=== PATIENT | male | born 1940 | race Caucasian/White ===

== ENCOUNTER 2019-03-24 07:32 | Day surgery (SDC) | payer MEDICARE, OTHER ==
[2019-03-24] MEDS ORDERED: fentaNYL 100 MCG/2 ML SDV ONE (08:17)
[2019-03-24] MEDS ORDERED: Propofol 200 MG/20 ML SDV ONE ×2 (08:17→10:04)
[2019-03-24] MEDS ORDERED: Midazolam 1 MG/ML 2 ML SDV ONE (08:17)
[2019-03-24] MEDS ORDERED: Lactated Ringers 1,000 ML IV SCH (08:45)
--- NOTE | 2019-03-24 15:40 | OR ---
DATE OF PROCEDURE: 03/24/2019 PREOPERATIVE DIAGNOSES: History of Zapata's esophagus, colon cancer screening. POSTOPERATIVE DIAGNOSES: History of Zapata's esophagus, hiatal hernia, submucosal gastric mass, colonic diverticulosis, pedunculated polyp 15 cm from the anal verge. PROCEDURE: Esophagogastroduodenoscopy with biopsy of gastroesophageal junction and biopsy of gastric submucosal mass, colonoscopy to the cecum with biopsy and then snare cautery polypectomy of polyp 15 cm from the anal verge. SURGEON: Nicko Colvin MD ANESTHESIA: IV anesthesia with monitored anesthesia care. INDICATION: This 78-year-old white male is referred for upper and lower endoscopy. Indication for the upper endoscopy is a history of Zapata's esophagus. Indication for the colonoscopy is colon cancer screening. He says he has not had either one of these studies for 10 years. I counseled him for upper and lower endoscopy with possible biopsy and/or polypectomy, including risks and alternatives, and he gave his informed consent to proceed. PROCEDURE IN DETAIL: The patient was placed in the left lateral decubitus position. IV anesthesia was administered by the Anesthesia Service. Time-out was held. The flexible video Olympus upper endoscope was passed through his mouth, down his esophagus, and into his stomach. The scope was easily passed through the pylorus into the duodenum reaching its third portion. The scope was then slowly withdrawn examining the mucosa throughout. The duodenal mucosa appeared unremarkable. The scope was brought up through the pylorus. The antrum appeared unremarkable. The scope was brought back in the body of the stomach, and a submucosal mass was seen. The scope was retroflexed. A prominent hiatal hernia was noted. The scope was straightened. We biopsied the submucosal mass. To do this, we removed some of the overlying mucosa and biopsied the underlying tissue. The scope was then brought up through the hiatal hernia to the GE junction. This appeared fairly unremarkable, but because of his history of Zapata's esophagus, we obtained multiple totalling at least six biopsies of the gastroesophageal junction. The scope was then brought proximally up through remainder of the esophagus which otherwise appeared unremarkable and was removed. Next, a rectal exam was performed, which was unremarkable. The flexible video Olympus colonoscope was introduced through his anus, up his rectum, and out his colon all the way to the cecum. En route, we saw several left-sided diverticula. There was no bleeding or inflammation associated with them. Once the cecum was reached, the scope was slowly withdrawn examining the mucosa throughout. No additional mucosal abnormalities noted until we reached about 15 cm from the anal verge. Here we saw a pedunculated polyp. We initially biopsied it to ensure we had tissue and then passed a snare around its base. It was elevated up away from the bowel wall and amputated as electrocautery was applied. The polyp was aspirated through the scope and captured in a polyp trap. The scope was retroflexed in the rectum with the distal rectum appearing unremarkable. The scope was straightened and removed. He tolerated the procedure well. Nicko Colvin MD /[id number]
== END 2019-03-24 11:55 | disposition home or self-care (01) ==
LOC: JP.SDS 07:32
PROVIDERS: ATTEND Surgery
DX: Z12.11 Encounter for screening for malignant neoplasm of colon (principal); K22.70 Barrett's esophagus without dysplasia; D12.7 Benign neoplasm of rectosigmoid junction; K57.30 Diverticulosis of large intestine without perforation or abscess without bleeding; K21.9 Gastro-esophageal reflux disease without esophagitis; K44.9 Diaphragmatic hernia without obstruction or gangrene; Z88.1 Allergy status to other antibiotic agents
CPT/HCPCS: J2250; J2704; J3010; J7120

== ENCOUNTER 2019-04-12 08:12 | Day surgery (SDC) | payer MEDICARE, OTHER ==
[2019-04-12] MEDS ORDERED: Lactated Ringers 1,000 ML IV SCH (11:00)
[2019-04-12] MEDS ORDERED: Propofol 200 MG/20 ML SDV ONE ×2 (12:09→12:54)
--- NOTE | 2019-04-13 08:45 | OR ---
DATE OF PROCEDURE: 04/12/2019 PREOPERATIVE DIAGNOSIS: Gastric mass. POSTOPERATIVE DIAGNOSIS: Gastric mass. PROCEDURE: Esophagogastroduodenoscopy with biopsy and snare of gastric mass. SURGEON: Nicko Colvin MD ANESTHESIA: IV anesthesia with monitored anesthesia care. INDICATIONS: This 78-year-old white male underwent upper endoscopy about a month ago where we found a gastric mass. We attempted to biopsy this. This was submucosal, came back indeterminate. He is brought back to the operating room for a repeat upper endoscopy to see if we can get a diagnosis of this mass. The question is a gastrointestinal stromal tumor or a lipoma. I counseled him for this, including risks and alternatives, and he gave his informed consent to proceed. PROCEDURE IN DETAIL: The patient was placed in the left lateral decubitus position. IV anesthesia was administered by the Anesthesia Service. Time-out was held. The flexible video Olympus upper endoscope was passed through his mouth, down the esophagus, and into his stomach. The scope was passed to the mass. We initially removed some of the mucosa with the biopsy forceps and tried to get some of the deeper tissue in the mass for a diagnosis. We then placed a snare about it and removed some of the mass. We also then, after the mucosa clearly had been removed, obtained further biopsies to try and get tissue for diagnosis. The scope was then removed. He tolerated the procedure well. Nicko Colvin MD /[id number]
== END 2019-04-12 14:15 | disposition home or self-care (01) ==
LOC: JP.SDS 08:12
PROVIDERS: ATTEND Surgery
DX: K31.89 Other diseases of stomach and duodenum (principal); I25.10 Atherosclerotic heart disease of native coronary artery without angina pectoris; I25.2 Old myocardial infarction; I10 Essential (primary) hypertension; E78.5 Hyperlipidemia, unspecified; J45.909 Unspecified asthma, uncomplicated; K21.9 Gastro-esophageal reflux disease without esophagitis; E66.9 Obesity, unspecified; Z68.31 Body mass index [BMI] 31.0-31.9, adult; Z88.1 Allergy status to other antibiotic agents
CPT/HCPCS: 43251; J2704; J7120; 88305; 88341; 88342

== ENCOUNTER 2022-04-13 13:21 | Inpatient (IN) | payer MEDICARE, OTHER ==
[2022-04-13 15:39] LABS: CORONAVIRUS COVID-19 NAA POSITIVE (NEGATIVE)
[2022-04-13] MEDS ORDERED: Albuterol/Ipratropium 3.0-0.5 MG/3 ML Neb Soln INH PRN (19:19)
[2022-04-13] MEDS ORDERED: Meclizine 25 MG Tab PO PRN (19:19)
[2022-04-13] MEDS ORDERED: LORazepam 2 MG/ML SDV IVPUSH PRN (19:21)
[2022-04-13] MEDS ORDERED: Ondansetron 4 MG Tab.DIS PO PRN (19:21)
[2022-04-13] MEDS ORDERED: Magnesium Hydroxide 400 MG/5 ML Susp 30 ML Cup PO PRN (19:21)
[2022-04-13] MEDS ORDERED: Acetaminophen/HYDROcodone 325-5 MG Tab PO PRN (19:21)
[2022-04-13] MEDS ORDERED: Albuterol 0.083% 2.5 MG/3 ML Neb Soln NEB PRN (19:21)
[2022-04-13] MEDS: Dexamethasone 4 MG/ML SDV IVPUSH SCH (20:30)
[2022-04-13] MEDS: guaiFENesin 600 MG Tab.ER PO SCH (20:31)
[2022-04-13] MEDS ORDERED: REMDESIVIR 200 MG in Sodium Chloride 0.9% 250 ML IV ONE (22:00)
[2022-04-13] MEDS: Enoxaparin 40 MG/0.4 ML Syringe SUBCUT SCH (22:45)
[2022-04-14] MEDS: Acetaminophen 325 MG Tab PO PRN ×4 (02:51→20:13)
[2022-04-14 06:33] LABS: ESTIMATED GFR 49 (>60)
[2022-04-14] MEDS ORDERED: Sodium Chloride 0.9% 100 ML IV SCH (08:15)
[2022-04-14] MEDS ORDERED: Iopamidol 755 Mg/ML 100 ML Bottle IV SCH (08:15)
[2022-04-14] MEDS ORDERED: Non-Formulary Medication 1 Each (Esomeprazole [Nexium] 40 MG Cap) PO SCH (09:00)
[2022-04-14] MEDS: Rosuvastatin 10 MG Tab PO SCH (09:44)
[2022-04-14] MEDS: Lisinopril 20 MG Tab PO SCH (09:44)
[2022-04-14] MEDS: Pantoprazole 40 MG Tab.CR PO SCH (09:45)
[2022-04-14] MEDS: guaiFENesin 600 MG Tab.ER PO SCH ×2 (09:45→22:04)
[2022-04-14] MEDS: Allopurinol 100 MG Tab PO SCH (09:45)
[2022-04-14] MEDS: amLODIPine 5 MG Tab PO SCH (09:45)
[2022-04-14] MEDS: Fenofibrate 54 MG Tab PO SCH (09:46)
[2022-04-14] MEDS: Cholecalciferol (Vitamin D3) 25 MCG Tab PO SCH (09:46)
[2022-04-14] MEDS: Enoxaparin 40 MG/0.4 ML Syringe SUBCUT SCH (09:46)
[2022-04-14] MEDS: Enoxaparin 100 MG/1 ML Syringe SUBCUT SCH ×2 (12:52→23:43)
[2022-04-14] MEDS ORDERED: Acetaminophen 1,000 MG in Premix Bag 1 BAG IV ONE (14:00)
[2022-04-14] MEDS: Dexamethasone 4 MG/ML SDV IVPUSH SCH (20:12)
[2022-04-14] MEDS: REMDESIVIR 100 MG in Sodium Chloride 0.9% 100 ML IV SCH (22:04)
[2022-04-15] MEDS: Acetaminophen 325 MG Tab PO PRN ×3 (04:04→21:01)
[2022-04-15 06:48] LABS: ESTIMATED GFR 26 (>60)
[2022-04-15] MEDS: guaiFENesin 600 MG Tab.ER PO SCH ×2 (08:39→22:39)
[2022-04-15] MEDS: Rosuvastatin 10 MG Tab PO SCH (08:39)
[2022-04-15] MEDS: amLODIPine 5 MG Tab PO SCH (08:39)
[2022-04-15] MEDS: Pantoprazole 40 MG Tab.CR PO SCH (08:39)
[2022-04-15] MEDS: Fenofibrate 54 MG Tab PO SCH (08:39)
[2022-04-15] MEDS: Lisinopril 20 MG Tab PO SCH (08:40)
[2022-04-15] MEDS: Cholecalciferol (Vitamin D3) 25 MCG Tab PO SCH (08:40)
[2022-04-15] MEDS: Allopurinol 100 MG Tab PO SCH (08:40)
[2022-04-15] MEDS ORDERED: Azithromycin 500 MG in Sodium Chloride 0.9% 250 ML IV SCH (09:30)
[2022-04-15] MEDS: Heparin Sodium 5,000 Units/ML Vial SUBCUT SCH ×2 (10:13→22:39)
[2022-04-15] MEDS ORDERED: Sodium Chloride 0.9% 1,000 ML IV ONE (10:34)
[2022-04-15] MEDS ORDERED: Sodium Chloride 0.9% 500 ML IV ONE (11:33)
[2022-04-15] MEDS: Norepinephrine Bit/D5W Premix 4 MG in Premix Bag 1 BAG IV SCH ×2 (12:16→22:00)
[2022-04-15 21:35] LABS: ESTIMATED GFR 14 (>60)
[2022-04-15] MEDS: REMDESIVIR 100 MG in Sodium Chloride 0.9% 100 ML IV SCH (22:10)
[2022-04-15] MEDS: Dexamethasone 4 MG/ML SDV IVPUSH SCH (22:38)
[2022-04-15] MEDS ORDERED: Vasopressin 20 Units/1 ML MDV ONE (22:44)
[2022-04-15] MEDS ORDERED: Dextrose 5% in Water 250 ML ONE (22:45)
[2022-04-15] MEDS ORDERED: Vasopressin 100 UNITS in Dextrose 5% in Water 250 ML IV SCH ×2 (22:45)
[2022-04-15] MEDS ORDERED: Acetaminophen 500 MG Tab PO ONE (22:45)
== END 2022-04-16 01:15 | DRG 177 ==
LOC: JP.ED 13:21 → JP.ICU 17:01
PROVIDERS: ADMIT Hospitalist; ATTEND Hospitalist
PROC: 8E0ZXY6 Isolation (ICD-10-PCS; principal; 2022-04-13)
PROC: XW033E5 Introduction of Remdesivir Anti-infective into Peripheral Vein, Percutaneous Approach, New Technology Group 5 (ICD-10-PCS; 2022-04-13)
PROC: 3E033XZ Introduction of Vasopressor into Peripheral Vein, Percutaneous Approach (ICD-10-PCS; 2022-04-15)
DX: U07.1 COVID-19 (principal); A41.9 Sepsis, unspecified organism; R65.21 Severe sepsis with septic shock; J96.01 Acute respiratory failure with hypoxia; I26.99 Other pulmonary embolism without acute cor pulmonale; N17.9 Acute kidney failure, unspecified; I11.0 Hypertensive heart disease with heart failure; I10 Essential (primary) hypertension; M10.9 Gout, unspecified; K21.9 Gastro-esophageal reflux disease without esophagitis; Z28.310 Unvaccinated for COVID-19; E78.00 Pure hypercholesterolemia, unspecified; J45.909 Unspecified asthma, uncomplicated; M19.90 Unspecified osteoarthritis, unspecified site; I25.2 Old myocardial infarction; Z88.1 Allergy status to other antibiotic agents; Z79.899 Other long term (current) drug therapy
CPT/HCPCS: 0241U; 36415; 51701; 51702; 71045; 71275; 80053; 82550; 82565; 83605; 83615; 83735; 84145; 84460; 85025; 85027; 85049; 85379; 86140; 87040; 97162; 97530; 99222; 99232; 99239; 99283; 99285; A9270-GY; J0131; J0456; J1100; J1644; J1650; J3490; J7030; J7040; J7050; J7060; Q9967